=== PATIENT | female | born 1950 | race Caucasian/White ===

== ENCOUNTER 2018-12-18 17:21 | Emergency (ER) | payer OTHER, MEDICARE, BC ==
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
[2018-12-18 21:08] VITALS: BP 140/38
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
== END 2018-12-18 20:41 | disposition home or self-care (01) ==
LOC: FB.ED 17:21
DX: S23.9XXA Sprain of unspecified parts of thorax, initial encounter (principal); Z98.51 Tubal ligation status; Z88.8 Allergy status to other drugs, medicaments and biological substances; V49.40XA Driver injured in collision with unspecified motor vehicles in traffic accident, initial encounter
CPT/HCPCS: 71120; 71130; 99284-25

== ENCOUNTER 2020-01-31 06:33 | Day surgery (SDC) | payer MEDICARE, BC ==
[2020-01-31] MEDS ORDERED: Propofol 200 MG/20 ML SDV IV ONE (06:34)
[2020-01-31] MEDS ORDERED: Lidocaine 2% 5 ML SDV INJECT ONE (06:34)
[2020-01-31] MEDS ORDERED: Lactated Ringers 1,000 ML IV SCH (06:45)
[2020-01-31] MEDS ORDERED: Sodium Chloride 0.9% 10 ML Syringe FLUSH PRN (06:45)
--- NOTE | 2020-01-31 08:14 | PCM.HPR ---
H & P Addendum review - H & P Addendum Review Date of Original H & P: 01/25/20 Date Reviewed: 01/31/20 Time Reviewed: 08:00 Patient was Examined: Changes (FIT test was positive so will proceed with colonoscopy in adition to EGD)
--- NOTE | 2020-01-31 08:56 | PCM.OPNOTE ---
- General Post-Op/Procedure Note Date of Surgery/Procedure: 01/31/20 Operative Procedure(s): EGD with Bx. Colonoscopy Findings: Gastritis erosion of antrum normal Colon Pre Op Diagnosis: Chronic nausea. Pos FIT Post-Op Diagnosis: Same Anesthesia Technique: MAC Primary Surgeon: Santos Salvador EBL in mLs: 0 Complications: None Condition: Good
[2020-01-31 11:44] VITALS: BP 133/76; PULSE 60
--- NOTE | 2020-01-31 14:33 | OR ---
DATE OF OPERATION: 01/31/2020 SURGEON: Santos Salvador MD PREOPERATIVE DIAGNOSES: 1. Chronic nausea. 2. Positive fecal immunochemical test. POSTOPERATIVE DIAGNOSES: 1. Gastritis of antrum with erosion. 2. Normal colon. PROCEDURES: 1. Esophagogastroduodenoscopy with biopsy. 2. Colonoscopy. ANESTHESIA: IV sedation. DESCRIPTION OF PROCEDURE: The patient was brought to the procedure room, where she was placed on the left side and IV sedation administered. Oral bite block was placed and the upper endoscope advanced into the esophagus under direct vision without difficulty. Vocal cords were viewed and were normal. Scope was advanced to the third portion of the duodenum. The duodenum and pylorus were normal. Antrum had some inflammation and a healing erosion in the prepyloric region. I did take 2 biopsies from the antrum to check for Helicobacter pylori. Photographs were taken. The body and fundus were normal. Retroflexion was normal. Air was removed and the scope withdrawn through the remaining esophagus, which appears normal. The patient tolerated this portion of the procedure well. Next, colonoscopy was performed, after digital rectal exam was done, which was normal. The colonoscope was inserted and advanced to the level of the cecum without difficulty. Cecal position was confirmed by identifying the appendiceal lumen and the ileocecal valve. Prep was good and surfaces were well visualized. Upon withdrawing the scope, the ascending, transverse, and descending colon were normal in appearance. The sigmoid colon and rectum were normal. Retroflexion was normal. Air was removed and the scope withdrawn. The patient tolerated the procedure well and returned to recovery in stable condition. I will have the patient follow up with me for review of pathology report in 1 week. She does not need further colon screening due to age. /[id number] LANI/GLADYS
== END 2020-01-31 09:46 | disposition home or self-care (01) ==
LOC: FB.SDS 06:33
PROVIDERS: ATTEND Surgery
DX: R19.5 Other fecal abnormalities (principal); K29.50 Unspecified chronic gastritis without bleeding; K25.9 Gastric ulcer, unspecified as acute or chronic, without hemorrhage or perforation; Z11.59 Encounter for screening for other viral diseases
CPT/HCPCS: 00813-QZ; 88305; 88342; J2001; J2704; J7120; U0002